=== PATIENT | female | born 1965 | race Caucasian/White ===

== ENCOUNTER → 2018-05-08 | Outpatient (CLI) | payer OTHER | LOC: M.CT 08:45 | DX: I25.84 Coronary atherosclerosis due to calcified coronary lesion (principal) ==

== ENCOUNTER → 2018-05-08 | Outpatient (CLI) | payer MEDICARE | LOC: M.RAD 08:55 | DX: Z13.820 Encounter for screening for osteoporosis (principal); K20.9 Esophagitis, unspecified; R53.82 Chronic fatigue, unspecified; R68.89 Other general symptoms and signs; Z78.0 Asymptomatic menopausal state ==

== ENCOUNTER → 2019-05-21 | Outpatient (CLI) | payer MEDICARE | LOC: M.CT 14:49 | DX: N20.1 Calculus of ureter (principal); K57.30 Diverticulosis of large intestine without perforation or abscess without bleeding; R19.7 Diarrhea, unspecified; R10.84 Generalized abdominal pain; Z90.49 Acquired absence of other specified parts of digestive tract ==

== ENCOUNTER → 2020-09-08 | Outpatient (CLI) | payer MEDICARE | LOC: M.MRI 07-15 08:30 | PROVIDERS: ATTEND Family Medicine | DX: G89.29 Other chronic pain (principal); M25.512 Pain in left shoulder; M47.812 Spondylosis without myelopathy or radiculopathy, cervical region; M25.78 Osteophyte, vertebrae; R42 Dizziness and giddiness; R26.89 Other abnormalities of gait and mobility; M48.02 Spinal stenosis, cervical region ==